=== PATIENT | female | born 1945 | race Caucasian/White ===

== ENCOUNTER 2016-09-11 05:31 | Inpatient (IN) ==
[2016-09-11] MEDS ORDERED: CLINDAMYCIN INJ 50 ML IV ONE (05:57)
[2016-09-11] MEDS ORDERED: VANCOMYCIN 1,000 MG VIAL ONE (05:57)
[2016-09-11] MEDS ORDERED: CLINDAMYCIN INJ 900 MG in PREMIX 1 EACH IV ONE (06:00)
[2016-09-11] MEDS ORDERED: VANCOMYCIN INJ 1,000 MG in SODIUM CHLORIDE 0.9% 250 ML IV ONE ×2 (06:00→21:00)
[2016-09-11] MEDS ORDERED: LACTATED RINGERS 1,000 ML IV SCH (07:00)
--- NOTE | 2016-09-11 07:00 | History and Physical Update ---
History and Physical Update - History and Physical H&P was reviewed, the patient examined and there: are no changes in the patients condition since last H&P was completed. - Dictation Physical: refer to scanned H&P
[2016-09-11] MEDS ORDERED: SCOPOLAMINE 1.5 MG PATCH TRANSDERM ONE (07:17)
[2016-09-11] MEDS ORDERED: DIAZEPAM 5 MG TABLET PO ONE (07:17)
[2016-09-11] MEDS ORDERED: PROPOFOL 200 MG/20 ML VIAL IV ONE (09:11)
[2016-09-11] MEDS ORDERED: PHENYLEPHRINE 1 MG/10 ML SYRINGE IV ONE (09:11)
[2016-09-11 11:42] LABS: Apearance,Urine CLEAR (Clear); Bilirubin,Urine Negative (Negative); Blood, Urine Negative (Negative); Glucose,Urine (UA) Negative (Negative); Ketones,Urine Negative (Negative); Nitrite,Urine Negative (Negative); Protein,Urine Negative; RBC,Urine <1 /HPF (0-4); Urine Color Straw (Yellow); Urine Specific Gravity 1.008 (1.001-1.035); Urine Urobilinogen < 2.0 EU/DL (0.2-1.0); WBC,Urine <1 /HPF (0-6)
[2016-09-11] MEDS ORDERED: FUROSEMIDE 40 MG TABLET PO PRN (12:09)
[2016-09-11] MEDS ORDERED: diphenhydrAMINE CAP 25 MG CAPSULE PO PRN (12:10)
[2016-09-11] MEDS ORDERED: MAGNESIUM HYDROXIDE SUSP 30 ML UDCUP PO PRN (12:10)
[2016-09-11] MEDS ORDERED: HYDROmorphone 2 MG/1 ML VIAL IV PRN (12:10)
[2016-09-11] MEDS ORDERED: ONDANSETRON 4 MG/2 ML VIAL IV PRN (12:10)
[2016-09-11] MEDS ORDERED: MIDAZOLAM 2 MG/2 ML VIAL ONE (12:29)
[2016-09-11] MEDS ORDERED: HYDROmorphone 2 MG/1 ML VIAL ONE (12:29)
[2016-09-11] MEDS ORDERED: KETAMINE 500 MG/10 ML VIAL ONE (12:29)
[2016-09-11] MEDS ORDERED: LACTATED RINGERS 2,000 ML IV ONE (12:29)
[2016-09-11] MEDS ORDERED: fentaNYL 100 MCG/2 ML VIAL ONE (12:29)
[2016-09-11] MEDS ORDERED: HYDROmorphone PCA 30 MG/30 ML SYRINGE IV SCH (12:30)
[2016-09-11] MEDS ORDERED: HYDROmorphone PCA 30 MG/30 ML SYRINGE IV ONE (12:35)
--- NOTE | 2016-09-11 12:57 | XRay Report ---
Right hip, single portable view. Indication: Right hip replacement. No previous. Surgical skin alden and drains project over the soft tissues. There has been a right total hip replacement. Along the medial proximal aspect of the femoral shaft, there is slight lucency which may be related to a vascular channel or a small cortical fracture. No evidence of dislocation. The hardware appears to be in good position. Impression: Slight oblique lucency through the cortex of the proximal shaft of the right femur medially, which may represent a vascular channel or could represent a small cortical fracture. Correlation with previous studies may be helpful. PROCEDURE INTERPRETED AT [facility] DEPARTMENT OF RADIOLOGY Final Report Signed by: Dr. Twyla Day
--- NOTE | 2016-09-11 13:52 | Anesthesia ---
Anesthesia Post OP - Post Ansesthetic Evaluation Patient seen in post op: Yes Resp: within normal limits CV: within normal limits Mental: within normal limits Temp: within normal limits Ivoc-Ma-Snfuqosmm: within normal limits Nausea and Vomiting: within normal limits Pain: within normal limits
[2016-09-11] MEDS: SODIUM CHLORIDE 0.9% 1,000 ML IV SCH (14:34)
--- NOTE | 2016-09-11 15:31 | Pulmonology Progress Note ---
Pulmonary - PN: Subj Interval history: Patient is a 71-year-old that has significant arthritis and had avascular necrosis of the right hip. She came in today and had a right total hip replacement. She has a white postop and says she is doing okay. She is very sore at present. She does not have any respiratory difficulties. She is overweight with hypothyroidism but is otherwise been fairly healthy. Exam (Progress Note) - Constitutional Vitals: Period Temp Pulse Resp BP Sys/Martinez Pulse Ox Last 24 Hr 97.0 F-98.1 F 88-109 18-20 96-133/49-85 94-100 General appearance: mild distress (She is uncomfortable after surgery.), over weight - Head Head exam: Present: normal inspection, normocephalic - Eye Eye exam: Present: EOMI. Absent: scleral icterus Pupils: Present: CAMILO - ENT ENT exam: Present: normal exam - Neck Neck exam: Present: normal inspection. Absent: lymphadenopathy, thyromegaly - Respiratory Respiratory exam: Present: clear to auscultation bilaterally. Absent: wheezes - Cardiovascular Cardiovascular exam: Present: regular rate and rhythm. Absent: gallop, systolic murmur - GI/Abdominal GI/Abdominal exam: Present: normal bowel sounds, soft. Absent: organomegaly, tenderness - Extremities Exam Extremities exam: Present: other (The right leg is splinted). Absent: calf tenderness, edema - Neurological Exam Neurological exam: Present: alert, oriented X3, CN II-XII intact - Psychiatric Psychiatric exam: Present: normal affect - Skin Skin exam: Present: warm, dry Assessment and Plan (1) Avascular necrosis of bone of right hip Status: Acute Assessment and plan: Patient was having severe pain and difficulty getting around because of her right hip. She comes in for surgery today. Current Visit: Yes (2) Status post right hip replacement Status: Acute Assessment and plan: She is postop and doing reasonably well at the present time. She is having some discomfort but no distress. Current Visit: Yes (3) Hypothyroid Status: Acute Assessment and plan: She will continue with thyroid replacement. Current Visit: Yes (4) Overweight Status: Acute Assessment and plan: She is overweight but will watch for problems. Current Visit: Yes
[2016-09-11] MEDS: CLINDAMYCIN INJ 900 MG in PREMIX 1 EACH IV SCH (17:39)
[2016-09-11] MEDS: CYCLOBENZAPRINE 10 MG TABLET PO SCH ×2 (17:40→22:08)
[2016-09-11] MEDS: ACETAMINOPHEN 500 MG TABLET PO SCH (17:41)
[2016-09-11] MEDS: carBAMazepine 200 MG TABLET PO SCH (22:07)
[2016-09-11] MEDS: MULTIVITAMIN (OCUVITE) TABLET PO SCH (22:07)
[2016-09-11] MEDS: PRIMIDONE 250 MG TABLET PO SCH (22:07)
[2016-09-11] MEDS: DOCUSATE SODIUM 100 MG CAPSULE PO SCH (22:07)
[2016-09-11] MEDS: GABAPENTIN 600 MG TABLET PO SCH (22:07)
[2016-09-11] MEDS: LATANOPROST 0.005% OPH SOLN 2.5 ML BOTTLE BOTH EYES SCH (22:09)
[2016-09-12] MEDS: ACETAMINOPHEN 500 MG TABLET PO SCH ×3 (01:42→12:22)
[2016-09-12] MEDS: CLINDAMYCIN INJ 900 MG in PREMIX 1 EACH IV SCH (03:17)
[2016-09-12 05:03] LABS: Basophils % 0.2 % (0.0-0.8); Hematocrit 29.1 VOL% (35.7-47.0); Hemoglobin 8.8 GM/DL (12.0-16.0); Immature Granulocytes % 0.4 %; Immature Granulocytes Absolute 0.03 #; Lymphocytes # 1.3 10*3/uL (1.4-4.0); Lymphocytes % 15.8 % (21.3-54.2); Mean Corpuscular HGB Conc 30.2 GM/DL (32-36); Mean Corpuscular Hemoglobin 26 PG (27-34); Mean Corpuscular Volume 85.6 FL (87-102); Mean Platelet Volume 9.7 FL (9.6-12.0); Neutrophils # 5.9 10*3/uL (1.4-7.4); Neutrophils % 71.6 % (38.7-73.9); Platelet Count 339 T/CUMM (130-400); Red Cell Distribution Width 16.4 % (9.3-17.3); White Blood Count 8.3 T/CUMM (4-12)
[2016-09-12 05:39] LABS: Calcium 7.2 MG/DL (8.5-10.1); Potassium 4.5 MMOL/L (3.5-5.1)
--- NOTE | 2016-09-12 06:12 | Orthopedic Progress Note ---
Assessment and Plan (1) Status post right hip replacement Status: Acute Assessment and plan: DVT prophylaxis Out of bed with therapy twice daily, touchdown weightbearing right lower extremity Discharge planning Current Visit: Yes Orthopedics - Subjective Interval history: Patient complains of mild pain in the right thigh. On exam she has 5 out of 5 strength distally with a 2 dorsalis pedis pulse. Exam - Constitutional Vitals: Period Temp Pulse Resp BP Sys/Martinez Pulse Ox Last 24 Hr 97.0 F-98.1 F 88-115 12-20 81-133/49-85 94-100 Results - Labs CBC & BMP: 09/12/16 04:26 09/12/16 04:26
[2016-09-12] MEDS: ENOXAPARIN 40 MG/0.4 ML SYRINGE SUBCUT SCH (06:18)
[2016-09-12] MEDS: SODIUM CHLORIDE 0.9% 1,000 ML IV SCH (07:17)
[2016-09-12] MEDS: CYCLOBENZAPRINE 10 MG TABLET PO SCH ×3 (10:11→21:41)
[2016-09-12] MEDS: MULTIVITAMIN (OCUVITE) TABLET PO SCH ×2 (10:11→21:41)
[2016-09-12] MEDS: hydrOXYzine HCL 25 MG TABLET PO SCH (10:11)
[2016-09-12] MEDS: TEMAZEPAM 15 MG CAPSULE PO SCH (10:12)
[2016-09-12] MEDS: DOCUSATE SODIUM 100 MG CAPSULE PO SCH ×2 (10:12→21:41)
[2016-09-12] MEDS: THYROID 60 MG TABLET PO SCH (13:52)
--- NOTE | 2016-09-12 14:10 | Pulmonology Progress Note ---
Pulmonary - PN: Subj Interval history: Patient is a 71-year-old that has significant arthritis and had avascular necrosis of the right hip. She came in today and had a right total hip replacement. She has done well postop although she says she did not sleep very well last night. Her leg is sore but she is doing okay. She has not had any shortness of breath or other problems. She is going to start physical therapy today. Exam (Progress Note) - Constitutional Vitals: Period Temp Pulse Resp BP Sys/Martinez Pulse Ox Last 24 Hr 97.8 F-97.9 F 104-115 12-19 81-116/49-73 95-100 Exam: General appearance: no distress (She is alert and looks reasonably comfortable) , over weight - Head Head exam: Present: normal inspection, normocephalic - Eye Eye exam: Present: EOMI. Absent: scleral icterus Pupils: Present: CAMILO - ENT ENT exam: Present: normal exam - Neck Neck exam: Present: normal inspection. Absent: lymphadenopathy, thyromegaly - Respiratory Respiratory exam: Present: clear to auscultation bilaterally. Absent: wheezes - Cardiovascular Cardiovascular exam: Present: regular rate and rhythm. Absent: gallop, systolic murmur - GI/Abdominal GI/Abdominal exam: Present: normal bowel sounds, soft. Absent: organomegaly, tenderness - Extremities Exam Extremities exam: Present: other (The right leg is splinted. She has no definite swelling or tenderness.). Absent: calf tenderness, edema - Neurological Exam Neurological exam: Present: alert, oriented X3, CN II-XII intact - Psychiatric Psychiatric exam: Present: normal affect - Skin Skin exam: Present: warm, dry Results - Labs CBC & BMP: 09/12/16 04:26 09/12/16 04:26 Assessment and Plan (1) Avascular necrosis of bone of right hip Status: Acute Assessment and plan: Patient was having severe pain and difficulty getting around because of her right hip. She comes in for surgery. She had a right total hip replacement. Current Visit: Yes (2) Status post right hip replacement Status: Acute Assessment and plan: She is postop and is fairly stable at present. She has had some pain but is otherwise doing okay. Current Visit: Yes (3) Hypothyroid Status: Acute Assessment and plan: She will continue with thyroid replacement. Current Visit: Yes (4) Overweight Status: Acute Assessment and plan: She is overweight but will watch for problems. Current Visit: Yes
[2016-09-12] MEDS: ACETAMINOPHEN 325 MG TABLET PO PRN (17:09)
[2016-09-12] MEDS: carBAMazepine 200 MG TABLET PO SCH (21:41)
[2016-09-12] MEDS: GABAPENTIN 600 MG TABLET PO SCH (21:42)
[2016-09-12] MEDS: PRIMIDONE 250 MG TABLET PO SCH (21:42)
[2016-09-12] MEDS: LATANOPROST 0.005% OPH SOLN 2.5 ML BOTTLE BOTH EYES SCH (21:42)
[2016-09-13] MEDS: ACETAMINOPHEN 325 MG TABLET PO PRN ×3 (00:30→21:57)
[2016-09-13 05:39] LABS: Basophils % 0.1 % (0.0-0.8); Hematocrit 25.7 VOL% (35.7-47.0); Hemoglobin 8.1 GM/DL (12.0-16.0); Immature Granulocytes % 0.4 %; Immature Granulocytes Absolute 0.04 #; Lymphocytes # 1.5 10*3/uL (1.4-4.0); Mean Corpuscular HGB Conc 31.5 GM/DL (32-36); Mean Corpuscular Hemoglobin 26 PG (27-34); Mean Corpuscular Volume 83.2 FL (87-102); Mean Platelet Volume 10.1 FL (9.6-12.0); Monocytes # 1.5 10*3/uL (0.11-0.8); Monocytes % 15.5 % (1.7-12.7); Neutrophils # 6.8 10*3/uL (1.4-7.4); Platelet Count 286 T/CUMM (130-400); Red Blood Count 3.09 MC/CUMM (3.8-5.5); Red Cell Distribution Width 15.9 % (9.3-17.3); White Blood Count 9.9 T/CUMM (4-12)
[2016-09-13] MEDS: ENOXAPARIN 40 MG/0.4 ML SYRINGE SUBCUT SCH (06:48)
--- NOTE | 2016-09-13 07:31 | Orthopedic Progress Note ---
Assessment and Plan (1) Status post right hip replacement Status: Acute Assessment and plan: Urine from Saturday was clean, we'll check another due to her symptoms Encouraged incentive spirometry Out of bed with therapy twice daily Discharge planning Current Visit: Yes Orthopedics - Subjective Interval history: Patient is complaining of burning on urination. She had low-grade temperature last night. Had some confusion last night as well. On exam her dressings clean and dry, she is neurovascular intact. Exam - Constitutional Vitals: Period Temp Pulse Resp BP Sys/Mratinez Pulse Ox Last 24 Hr 98.0 F-100.7 F 80-115 18-20 100-122/40-69 93-96 Results - Labs CBC & BMP: 09/13/16 04:50 09/12/16 04:26
--- NOTE | 2016-09-13 07:50 | Pulmonology Progress Note ---
Pulmonary - PN: Subj Interval history: 71-year-old white female has a history of arthritis. She is a little overweight. She had a right hip replacement on Saturday for avascular necrosis. She had some fever and sweats last night. Temperature was only 100. Her calves are somewhat painful. She has not had a cough or congestion. Exam (Progress Note) - Constitutional Vitals: Period Temp Pulse Resp BP Sys/Martinez Pulse Ox Last 24 Hr 98.0 F-100.7 F 80-115 18-20 100-122/40-69 93-96 Exam: She is alert and is afebrile this morning. Pupils react to light throat clear neck supple no bruits. Chest sounds clear equal breath sounds. Heart normal rate and rhythm no murmurs. Abdomen soft nontender no masses. Liver spleen kidneys not palpably enlarged. Extremities bandage on her right hip. Both calves are tender. Homans test is negative. No edema. Results - Labs CBC & BMP: 09/13/16 04:50 09/12/16 04:26 Lab Results: I have reviewed the past 24 hour labs Assessment and Plan (1) Fever Status: Acute Assessment and plan: She did have some fever and sweats overnight. Calves are nontender. We will get venous Dopplers. Likely this is just some atelectasis from postoperative condition. Current Visit: Yes (2) Avascular necrosis of bone of right hip Status: Acute Assessment and plan: She has had a right hip replacement. Current Visit: Yes (3) Status post right hip replacement Status: Acute Assessment and plan: Patient is to start with physical therapy today. Fever and tender calves 2 days postop. Will get venous Dopplers. Getting Lovenox DVT prophylaxis. Current Visit: Yes (4) Hypothyroid Status: Acute Assessment and plan: Continuing Synthroid replacement. Current Visit: Yes (5) Overweight Status: Acute Assessment and plan: This will likely make physical therapy a little more difficult. Current Visit: Yes
--- NOTE | 2016-09-13 09:21 | Ultrasound Report ---
Exam: US venous doppler LE BI Indication: Leg pain, post right hip replacement Date: 09/13/2016 7:52 AM Findings: Grayscale color flow duplex/Doppler imaging and spectral analysis waveform imaging was performed with real-time ultrasound with image stored and captured. The right common femoral, superficial femoral, popliteal saphenous veins are patent with normal augmentation and compression. There is no evidence of popliteal or Valles's cyst. Normal wave form analysis present. Normal color flow The left common femoral, superficial femoral, popliteal saphenous veins are patent with normal augmentation and compression. There is no evidence of popliteal or Valles's cyst. Normal wave form analysis present. Normal color flow Impression: 1. No DVT PROCEDURE INTERPRETED AT [facility] DEPARTMENT OF RADIOLOGY Final Report Signed by: Dr. Ryan Cisneros
[2016-09-13] MEDS ORDERED: THYROID 60 MG TABLET PO ONE (09:30)
[2016-09-13] MEDS: MULTIVITAMIN (OCUVITE) TABLET PO SCH ×2 (10:08→21:04)
[2016-09-13] MEDS: TEMAZEPAM 15 MG CAPSULE PO SCH (10:08)
[2016-09-13] MEDS: CYCLOBENZAPRINE 10 MG TABLET PO SCH ×3 (10:09→21:04)
[2016-09-13] MEDS: DOCUSATE SODIUM 100 MG CAPSULE PO SCH ×2 (10:09→22:52)
[2016-09-13] MEDS: hydrOXYzine HCL 25 MG TABLET PO SCH (10:09)
[2016-09-13] MEDS: THYROID 60 MG TABLET PO SCH (11:28)
--- NOTE | 2016-09-13 12:12 | Pathology Report from [facility] ---
ACCESSION # : [id number] PATIENT NAME : Diana Garcia ORDERING DR : Cody Nichols MD CLINICAL HX: Right hip osteoarthritis POST-OP DX: Same SPECIMEN INFO: Right hip bone and tissue GROSS DESCRIPTION: The specimen is received in formalin labeled with the patient 's name Diana Garcia is a fractured femoral head that measures 4.0 x 4.0 x 3.3 cm. The articular surface is smooth and carter with no subchondral eburnation seen. The area of fracture is ragged and hemorrhagic with no softening appreciated. received separately in the specimen container is an aggregate of hemorrhagic bone and soft tissue measuring 8.0 x 4.0 cm. Pallet Stone Inserter sections are submitted in one cassette following decalcification. DIAGNOSIS FOR DIANA GARCIA: Right femoral head with fracture and changes of degenerative joint disease/ osteoarthritis. SERVICE DATE: 09/11/2016 REPORT DATE: 09/13/2016 PATHOLOGIST: Carlin Gomez M.D. MTDPolo
[2016-09-13 16:03] LABS: Apearance,Urine CLEAR (Clear); Bilirubin,Urine Negative (Negative); Blood, Urine Negative (Negative); Glucose,Urine (UA) Negative (Negative); Ketones,Urine 5 mg/dL (Negative); Nitrite,Urine Negative (Negative); Protein,Urine Negative; RBC,Urine 1 /HPF (0-4); Urine Color Yellow (Yellow); Urine Specific Gravity 1.008 (1.001-1.035); Urine Urobilinogen < 2.0 EU/DL (0.2-1.0); WBC,Urine 1 /HPF (0-6)
[2016-09-13] MEDS: LATANOPROST 0.005% OPH SOLN 2.5 ML BOTTLE BOTH EYES SCH (21:04)
[2016-09-13] MEDS: PRIMIDONE 250 MG TABLET PO SCH (21:04)
[2016-09-13] MEDS: carBAMazepine 200 MG TABLET PO SCH (21:04)
[2016-09-13] MEDS: GABAPENTIN 600 MG TABLET PO SCH (21:04)
[2016-09-14 06:36] LABS: Basophils % 0.2 % (0.0-0.8); Hematocrit 26.2 VOL% (35.7-47.0); Hemoglobin 8.3 GM/DL (12.0-16.0); Immature Granulocytes % 0.9 %; Lymphocytes # 1.2 10*3/uL (1.4-4.0); Lymphocytes % 10.9 % (21.3-54.2); Mean Corpuscular HGB Conc 31.7 GM/DL (32-36); Mean Corpuscular Hemoglobin 26 PG (27-34); Mean Corpuscular Volume 82.4 FL (87-102); Mean Platelet Volume 10.2 FL (9.6-12.0); Monocytes # 1.3 10*3/uL (0.11-0.8); Monocytes % 11.3 % (1.7-12.7); Neutrophils # 8.7 10*3/uL (1.4-7.4); Neutrophils % 76.7 % (38.7-73.9); Platelet Count 319 T/CUMM (130-400); Red Blood Count 3.18 MC/CUMM (3.8-5.5); Red Cell Distribution Width 16.3 % (9.3-17.3); White Blood Count 11.4 T/CUMM (4-12)
[2016-09-14] MEDS: ENOXAPARIN 40 MG/0.4 ML SYRINGE SUBCUT SCH (06:40)
--- NOTE | 2016-09-14 07:29 | Discharge Summary ---
Hospital Course - Hospital Course Hospital Course: 71-year-old female admitted to the hospital following right total hip arthroplasty. She tolerated the procedure well was transferred to the floor stable condition postoperatively. She received routine antibiotics and thromboprophylaxis. She was very slow to get around with therapy, so we have been swing bed or consult for placement. She did have some early issues with sundowning, but this resolved by the time of discharge. Once a bed was available, she was discharged to swing bed at [facility]. Discharge, Her Wounds Clean and Dry and She Was Neurovascularly Intact. Diagnosis - Discharge Diagnosis (1) Status post right hip replacement Status: Acute Specialty Discharge - Follow Up or Referrals Follow up with: Cody Nichols MD [Physician] - (3-4 weeks) Discharge Plan - Discharge Data Disposition: Swing Bed W Planned Readmit Condition at Discharge: Stable Discharge Diet: advance to your usual diet Activity: ambulate only with your walker Hygiene: may shower Weight Bearing at Discharge: partial weight bearing (30 lb partial WB RLE) Driving: not until seen by doctor Contact your physician if you experience:: fever over 101, Difficulty voiding, Redness or swelling, Nausea/Vomiting, Shortness of breath, Bleeding, pain uncontrolled by pain medications Wound / Dressing Care Instructions: begin daily dressing change on Saturday. Ok to shower, no tub soaks. Bladen out 09/24/2016 - Discharge Medications New Aspirin EC Tab 325 mg PO DAILY #30 tablet Acetaminophen Tab [Tylenol Tab] 650 mg PO Q6H PRN #0 tablet PRN Reason: Pain Mild (1-3) HYDROcodone/ACETAMIN 7.5-325 [[place] 7.5-325] 1 - 2 tablet PO Q4H PRN #60 tablet PRN Reason: Pain Moderate (4-7) Continue Meclizine [Antivert] 25 mg PO DAILY PRN PRN Reason: Dizziness hydrOXYzine HCl [Hydroxyzine HCl] 25 mg PO DAILY Methocarbamol 750 mg PO TID Gabapentin Cap/Tab [Neurontin Cap/Tab] 600 mg PO BEDTIME Temazepam 30 mg PO BEDTIME Furosemide Tab [Lasix Tab] 40 mg PO DIRECTED PRN PRN Reason: Edema carBAMazepine TAB [TEGretol TAB] 800 mg PO BEDTIME Vit C/Vishal AC/Lut/Copper/Znox [Preservision Lutein Softgel] 1 each PO BID Latanoprost [Latanoprost 0.005 % Oph Soln] 1 drop BOTH EYES BEDTIME Cyclobenzaprine [Flexeril] 10 mg PO TID Primidone [Mysoline] 250 mg PO BEDTIME Thyroid,Pork [[place] Thyroid] 270 mg PO DAILY Discontinued Hydrocodone/Acetaminophen [Lortab 7.5-325 mg Tablet] 1 each PO Q6HR - Follow Up or Referral Follow Up: Cody Nichols MD [Physician] - (3-4 weeks) - Forms/Instructions Additional Discharge Instructions: 30lb partial WB RLE. RIGHT hip precautions Exam - Constitutional Vitals: Period Temp Pulse Resp BP Sys/Martinez Pulse Ox Last 24 Hr 98.6 F-100.7 F 98-120 12-20 91-139/58-97 92-97 Discharge Results Labs on day of discharge: Labs from last 24 hours 09/14/16 09/13/16 04:59 13:42 WBC 11.4 RBC 3.18 L Hgb 8.3 L Hct 26.2 L MCV 82.4 L MCH 26 L MCHC 31.7 L RDW 16.3 Plt Count 319 MPV 10.2 Neut % (Auto) 76.7 H Lymph % (Auto) 10.9 L [place] % (Auto) 11.3 Eos % (Auto) 0.0 Baso % (Auto) 0.2 Neut # (Auto) 8.7 H Lymph # (Auto) 1.2 L [place] # (Auto) 1.3 H Eos # (Auto) 0.0 Baso # (Auto) 0.0 Immature Gran % 0.9 Nucleated RBC % 0.0 Immature Gran # 0.10 Nucleated RBCs # 0.00 Urine Color Yellow Urine Appearance Clear Urine pH 6.0 Ur Specific Purdy 1.008 Urine Protein Negative Urine Glucose (UA) Negative Urine Ketones 5 Urine Blood Negative Urine Nitrate Negative Urine Bilirubin Negative Urine Urobilinogen < 2.0 H Urine Leukocytes Negative Urine RBC 1 Urine WBC 1 Ur Culture Indicated? Not indicated DS: Provider Date of admission: 09/11/16 05:31 Primary care physician: Destiny Napier Attending physician on admission: Cody Nichols MD Consults: 09/11/16 12:10 Consult to Case Mgmt/Social Srvs [CONS] Routine Reason for Case Mgmt/Social Srvs: Rehab Home Health Equipment Consult Comment: Bedside Commode, CPM, Walker Consult to Occupational Therapy [CONS] Routine Reason for Occupational Therapy: Evaluate and Treat Consult Comment: ADL's 09/11/16 12:12 Consult to Physician [CONS] Routine Comment: Consulting Provider: Clayton Obrien Consulting Provider Notified: Yes When should Consulting Provider be notified: Now Person Notified: henrik llanos Date Notified: 09/11/16 Time Notified: 14:04 09/11/16 14:21 Consult to Pharmacy [CONS] Routine Reason for Pharmacy Consult: Adjust Meds Renal Funct 09/11/16 19:21 Consult to Physical Therapy [CONS] Routine Reason for Physical Therapy: Gait Training Start Therapy: Tomorrow Consult Comment: touchdown weightbearing right lower extremity Discharging clinician: Cody Nichols MD
--- NOTE | 2016-09-14 08:00 | Orthopedic Progress Note ---
Assessment and Plan (1) Status post right hip replacement Status: Acute Assessment and plan: Awaiting swing bed placement Current Visit: Yes Orthopedics - Subjective Interval history: Patient still with confusion during the night. Seems better during the day. She was able to sit in the bedside chair twice yesterday. On exam her dressings clean and dry, she is neurovascularly intact. Exam - Constitutional Vitals: Period Temp Pulse Resp BP Sys/Martinez Pulse Ox Last 24 Hr 98.6 F-100.6 F 98-120 12-20 91-139/58-70 92-97 Results - Labs CBC & BMP: 09/14/16 04:59 09/12/16 04:26 Specialty Discharge - Follow Up or Referrals Follow up with: Cody Nichols MD [Physician] - (3-4 weeks)
--- NOTE | 2016-09-14 09:01 | Pulmonology Progress Note ---
Pulmonary - PN: Subj Interval history: 71-year-old white female has a history of arthritis. She is a little overweight. She had a right hip replacement on Saturday for avascular necrosis. She had some fever and sweats last night. Temperature was only 100. Her calves are somewhat painful. She has not had a cough or congestion. 09/14/2016 no further fever. Venous Dopplers were negative. Ready for discharge. Please call if needed for the Exam (Progress Note) - Constitutional Vitals: Period Temp Pulse Resp BP Sys/Martinez Pulse Ox Last 24 Hr 98.6 F-100.6 F 98-120 12-20 91-139/58-70 92-97 Exam: She is alert and is afebrile this morning. Pupils react to light throat clear neck supple no bruits. Chest sounds clear equal breath sounds. Heart normal rate and rhythm no murmurs. Abdomen soft nontender no masses. Liver spleen kidneys not palpably enlarged. Extremities bandage on her right hip. Both calves are tender. Homans test is negative. 1 plus edema. Results - Labs CBC & BMP: 09/14/16 04:59 09/12/16 04:26 Lab Results: I have reviewed the past 24 hour labs Assessment and Plan (1) Fever Status: Acute Assessment and plan: She did have some fever and sweats overnight. Calves are nontender. We will get venous Dopplers. Likely this is just some atelectasis from postoperative condition. 09/14/2016 no further fever. Maximum temperature was only 100. Current Visit: Yes (2) Avascular necrosis of bone of right hip Status: Acute Assessment and plan: She has had a right hip replacement. 09/14/16 status post right hip replacement. Current Visit: Yes (3) Status post right hip replacement Status: Acute Assessment and plan: Patient is to start with physical therapy today. Fever and tender calves 2 days postop. Will get venous Dopplers. Getting Lovenox DVT prophylaxis. 09/14/16 patient participating in physical therapy. Ready to go to swing bed Current Visit: Yes (4) Hypothyroid Status: Acute Assessment and plan: Continuing Synthroid replacement. Current Visit: Yes (5) Overweight Status: Acute Assessment and plan: This will likely make physical therapy a little more difficult. Current Visit: Yes Specialty Discharge - Follow Up or Referrals Follow up with: Cody Nichols MD [Physician] - (3-4 weeks)
[2016-09-14] MEDS: THYROID 60 MG TABLET PO SCH (11:27)
[2016-09-14] MEDS: CYCLOBENZAPRINE 10 MG TABLET PO SCH ×3 (11:28→21:51)
[2016-09-14] MEDS: DOCUSATE SODIUM 100 MG CAPSULE PO SCH ×2 (11:29→21:51)
[2016-09-14] MEDS: hydrOXYzine HCL 25 MG TABLET PO SCH (11:30)
[2016-09-14] MEDS: MULTIVITAMIN (OCUVITE) TABLET PO SCH ×2 (11:31→21:51)
[2016-09-14] MEDS: TEMAZEPAM 15 MG CAPSULE PO SCH (11:34)
[2016-09-14] MEDS: LATANOPROST 0.005% OPH SOLN 2.5 ML BOTTLE BOTH EYES SCH (21:50)
[2016-09-14] MEDS: carBAMazepine 200 MG TABLET PO SCH (21:50)
[2016-09-14] MEDS: PRIMIDONE 250 MG TABLET PO SCH (21:51)
[2016-09-14] MEDS: GABAPENTIN 600 MG TABLET PO SCH (21:51)
[2016-09-14] MEDS: TEMAZEPAM 15 MG CAPSULE PO PRN (21:51)
[2016-09-15] MEDS: ENOXAPARIN 40 MG/0.4 ML SYRINGE SUBCUT SCH (06:25)
--- NOTE | 2016-09-15 08:29 | Orthopedic Progress Note ---
Orthopedics - Subjective Interval history: Jurado comfortable awake reports confusion intermittently. Continue PT awaiting rehabilitation placement Exam - Constitutional Vitals: Period Temp Pulse Resp BP Sys/Martinez Pulse Ox Last 24 Hr 98.1 F-100.3 F 74-118 18-20 86-124/57-77 93-97 Results - Labs CBC & BMP: 09/14/16 04:59 09/12/16 04:26 Specialty Discharge - Follow Up or Referrals Follow up with: Cody Nichols MD [Physician] - (3-4 weeks)
[2016-09-15] MEDS: hydrOXYzine HCL 25 MG TABLET PO SCH (09:49)
[2016-09-15] MEDS: CYCLOBENZAPRINE 10 MG TABLET PO SCH ×3 (09:49→21:51)
[2016-09-15] MEDS: MULTIVITAMIN (OCUVITE) TABLET PO SCH ×2 (09:49→21:50)
[2016-09-15] MEDS: DOCUSATE SODIUM 100 MG CAPSULE PO SCH ×2 (09:49→21:52)
[2016-09-15] MEDS: THYROID 60 MG TABLET PO SCH (10:04)
[2016-09-15] MEDS: carBAMazepine 200 MG TABLET PO SCH (21:50)
[2016-09-15] MEDS: PRIMIDONE 250 MG TABLET PO SCH (21:51)
[2016-09-15] MEDS: TEMAZEPAM 15 MG CAPSULE PO PRN (21:51)
[2016-09-15] MEDS: GABAPENTIN 600 MG TABLET PO SCH (21:51)
[2016-09-15] MEDS: LATANOPROST 0.005% OPH SOLN 2.5 ML BOTTLE BOTH EYES SCH (23:11)
[2016-09-16] MEDS: ENOXAPARIN 40 MG/0.4 ML SYRINGE SUBCUT SCH (07:42)
--- NOTE | 2016-09-16 10:20 | Orthopedic Progress Note ---
Orthopedics - Subjective Interval history: Progressing very slowly likely to need swing bed rehabilitation placement no new complaints Exam - Constitutional Vitals: Period Temp Pulse Resp BP Sys/Martinez Pulse Ox Last 24 Hr 97.2 F-99.4 F 93-118 12-21 84-143/47-94 90-97 Results - Labs CBC & BMP: 09/14/16 04:59 09/12/16 04:26 Specialty Discharge - Follow Up or Referrals Follow up with: Cody Nichols MD [Physician] - (3-4 weeks)
[2016-09-16] MEDS: hydrOXYzine HCL 25 MG TABLET PO SCH (11:45)
[2016-09-16] MEDS: MECLIZINE 25 MG TABLET PO PRN (11:45)
[2016-09-16] MEDS: MULTIVITAMIN (OCUVITE) TABLET PO SCH ×2 (11:46→20:37)
[2016-09-16] MEDS: CYCLOBENZAPRINE 10 MG TABLET PO SCH ×3 (11:47→20:36)
[2016-09-16] MEDS: DOCUSATE SODIUM 100 MG CAPSULE PO SCH ×2 (11:47→20:37)
[2016-09-16] MEDS: THYROID 60 MG TABLET PO SCH (15:29)
[2016-09-16] MEDS: carBAMazepine 200 MG TABLET PO SCH (20:36)
[2016-09-16] MEDS: GABAPENTIN 600 MG TABLET PO SCH (20:36)
[2016-09-16] MEDS: LATANOPROST 0.005% OPH SOLN 2.5 ML BOTTLE BOTH EYES SCH (20:36)
[2016-09-16] MEDS: TEMAZEPAM 15 MG CAPSULE PO PRN (20:37)
[2016-09-16] MEDS: PRIMIDONE 250 MG TABLET PO SCH (20:37)
[2016-09-17] MEDS: ENOXAPARIN 40 MG/0.4 ML SYRINGE SUBCUT SCH (06:15)
--- NOTE | 2016-09-17 07:36 | Orthopedic Progress Note ---
Assessment and Plan (1) Status post right hip replacement Status: Acute Assessment and plan: Discharge to swing bed Current Visit: Yes Orthopedics - Subjective Interval history: Patient was ambulating in the room over the weekend, mostly sitting in the bedside chair. On exam, her wound is clean and dry, she is neurovascularly intact. Exam - Constitutional Vitals: Period Temp Pulse Resp BP Sys/Martinez Pulse Ox Last 24 Hr 97.5 F-98.9 F 91-102 12-18 86-143/51-86 93-97 Results - Labs CBC & BMP: 09/14/16 04:59 09/12/16 04:26 Specialty Discharge - Follow Up or Referrals Follow up with: Cody Nichols MD [Physician] - (3-4 weeks)
[2016-09-17] MEDS: MULTIVITAMIN (OCUVITE) TABLET PO SCH ×2 (09:44→20:39)
[2016-09-17] MEDS: hydrOXYzine HCL 25 MG TABLET PO SCH (09:44)
[2016-09-17] MEDS: DOCUSATE SODIUM 100 MG CAPSULE PO SCH ×2 (09:44→20:40)
[2016-09-17] MEDS: CYCLOBENZAPRINE 10 MG TABLET PO SCH ×3 (09:44→20:40)
[2016-09-17] MEDS: MECLIZINE 25 MG TABLET PO PRN (14:27)
[2016-09-17] MEDS: THYROID 60 MG TABLET PO SCH (16:50)
[2016-09-17] MEDS: ONDANSETRON ODT 4 MG TABLET PO PRN (16:51)
[2016-09-17] MEDS: carBAMazepine 200 MG TABLET PO SCH (20:39)
[2016-09-17] MEDS: PRIMIDONE 250 MG TABLET PO SCH (20:39)
[2016-09-17] MEDS: GABAPENTIN 600 MG TABLET PO SCH (20:39)
[2016-09-17] MEDS: LATANOPROST 0.005% OPH SOLN 2.5 ML BOTTLE BOTH EYES SCH (20:43)
[2016-09-17] MEDS: TEMAZEPAM 15 MG CAPSULE PO PRN (20:43)
[2016-09-18] MEDS: ENOXAPARIN 40 MG/0.4 ML SYRINGE SUBCUT SCH (06:14)
[2016-09-18 06:47] LABS: Basophils % 0.2 % (0.0-0.8); Hematocrit 25.5 VOL% (35.7-47.0); Hemoglobin 8.1 GM/DL (12.0-16.0); Immature Granulocytes % 0.8 %; Lymphocytes % 24.3 % (21.3-54.2); Mean Corpuscular HGB Conc 31.8 GM/DL (32-36); Mean Corpuscular Hemoglobin 27 PG (27-34); Mean Corpuscular Volume 83.9 FL (87-102); Mean Platelet Volume 9.2 FL (9.6-12.0); Monocytes % 11.5 % (1.7-12.7); Neutrophils % 63.2 % (38.7-73.9); Platelet Count 416 T/CUMM (130-400); Red Blood Count 3.04 MC/CUMM (3.8-5.5); Red Cell Distribution Width 17.4 % (9.3-17.3)
[2016-09-18 06:48] LABS: Immature Granulocytes Absolute 0.05 #; Lymphocytes # 1.5 10*3/uL (1.4-4.0); Monocytes # 0.7 10*3/uL (0.11-0.8); Neutrophils # 3.8 10*3/uL (1.4-7.4)
[2016-09-18 07:30] LABS: Calcium 6.7 MG/DL (8.5-10.1); Osmolality,Calculated 280.1 MOS/KG (273-304); Potassium 2.9 MMOL/L (3.5-5.1)
--- NOTE | 2016-09-18 08:50 | Orthopedic Progress Note ---
Assessment and Plan (1) Status post right hip replacement Status: Acute Assessment and plan: Discharge home if swing bed denied by insurance Current Visit: Yes Orthopedics - Subjective Interval history: Pt still awaiting insurance approval for swing bed placement. Has not ambulated outside the room yet. C/o sores in mouth C/D/I, NVI Exam - Constitutional Vitals: Period Temp Pulse Resp BP Sys/Martinez Pulse Ox Last 24 Hr 98.4 F-99.9 F 92-110 18-20 90-118/55-70 95-100 Results - Labs CBC & BMP: 09/18/16 06:28 09/18/16 06:28 Specialty Discharge - Follow Up or Referrals Follow up with: Cody Nichols MD [Physician] - 10/08/16 10:30 am (3-4 weeks)
[2016-09-18] MEDS: MULTIVITAMIN (OCUVITE) TABLET PO SCH (09:43)
[2016-09-18] MEDS: THYROID 60 MG TABLET PO SCH (09:44)
[2016-09-18] MEDS: CYCLOBENZAPRINE 10 MG TABLET PO SCH (09:44)
[2016-09-18] MEDS: DOCUSATE SODIUM 100 MG CAPSULE PO SCH (09:44)
[2016-09-18] MEDS: NYSTATIN 500,000 UNIT/5 ML UDCUP SWISH/SWAL SCH ×2 (09:44→14:06)
[2016-09-18] MEDS: hydrOXYzine HCL 25 MG TABLET PO SCH (09:44)
[2016-09-18] MEDS: ONDANSETRON ODT 4 MG TABLET PO PRN (10:27)
[2016-09-18 15:35] VITALS: BP 132/60
== END 2016-09-18 16:00 | disposition home health service (06) | DRG 470 ==
LOC: N.SDSINP 05:31 → N.3E 13:46
PROVIDERS: ADMIT Orthopaedic Surgery; ATTEND Orthopaedic Surgery

== ENCOUNTER 2019-04-02 11:35 | Inpatient (IN) ==
[2019-04-02] MEDS ORDERED: NALOXONE 0.4 MG/ML VIAL ONE (11:40)
[2019-04-02] MEDS ORDERED: NALOXONE 0.4 MG/ML VIAL IV STA (11:51)
[2019-04-02] MEDS ORDERED: SODIUM CHLORIDE 0.9% 500 ML IV STA (12:04)
[2019-04-02 12:15] LABS: Basophils % 0.2 % (0.0-0.8); Hematocrit 32.8 VOL% (35.7-47.0); Hemoglobin 10.3 GM/DL (12.0-16.0); Immature Granulocytes % 0.6 %; Immature Granulocytes Absolute 0.05 #; Lymphocytes # 1.1 10*3/uL (1.4-4.0); Lymphocytes % 12.1 % (21.3-54.2); Mean Corpuscular HGB Conc 31.4 GM/DL (32-36); Monocytes % 6.9 % (1.7-12.7); Neutrophils % 80.2 % (38.7-73.9); Platelet Count 370 T/CUMM (130-400); Red Cell Distribution Width 15.2 % (9.3-17.3); White Blood Count 8.7 T/CUMM (4-12)
[2019-04-02 12:24] LABS: Alanine Aminotransferase 339 U/L (13-56); Albumin 3.4 G/DL (3.4-5.0); Alkaline Phosphatase 156 U/L (45-117); Apearance,Urine CLOUDY (Clear); Aspartate Amino Transferase 327 U/L (0-37); Bacteria,Urine Occasional /HPF (Few); Bilirubin,Total < 0.39 MG/DL (0.2-1.0); Bilirubin,Urine Negative (Negative); Blood Urea Nitrogen 20 MG/DL (7-18); Blood, Urine Negative (Negative); Glucose 145 MG/DL (74-106); Glucose,Urine (UA) Negative (Negative); Ketones,Urine Negative (Negative); Nitrite,Urine Positive (Negative); Osmolality,Calculated 269.5 MOS/KG (273-304); Protein,Urine 30 MG/DL; RBC,Urine 4 /HPF (0-4); Squamous Epithelial Cell,Urine Occasional /HPF (0-10); Total Protein 7.5 G/DL (6.4-8.3); Urine Color Amber (Yellow); Urine Specific Gravity 1.014 (1.001-1.035); WBC,Urine 256 /HPF (0-6)
[2019-04-02 12:25] LABS: Barbiturates Screen,Urine Positive (Negative); Benzodiazepines Screen,Urine Positive (Negative); Cannabinoid Screen,Urine Negative (Negative); Opiate Screen,Urine Positive (Negative); Phencyclidine Screen,Urine Negative (Negative)
[2019-04-02] MEDS ORDERED: ONDANSETRON 4 MG/2 ML VIAL IV PRN (15:58)
[2019-04-02] MEDS ORDERED: MECLIZINE 25 MG TABLET PO PRN (16:04)
[2019-04-02] MEDS ORDERED: SODIUM CHLORIDE 0.9% 100 ML IV ONE (17:20)
[2019-04-02] MEDS: ENOXAPARIN 40 MG/0.4 ML SYRINGE SUBCUT SCH (17:26)
[2019-04-02] MEDS: SODIUM CHLORIDE 0.9% 1,000 ML IV SCH (17:28)
[2019-04-02] MEDS: cefTRIAXone 1,000 MG in SYRINGE 1 EACH IV SCH (17:28)
[2019-04-02] MEDS ORDERED: carBAMazepine 200 MG TABLET PO SCH (21:00)
[2019-04-02] MEDS: POTASSIUM CHLORIDE 10 MEQ TABLET PO SCH (22:03)
[2019-04-02] MEDS: DULoxetine 30 MG CAPSULE PO SCH (22:04)
[2019-04-02] MEDS: LATANOPROST 0.005% OPH SOLN 2.5 ML BOTTLE BOTH EYES SCH (22:04)
[2019-04-03] MEDS: SODIUM CHLORIDE 0.9% 1,000 ML IV SCH ×5 (05:54→23:49)
[2019-04-03 06:26] LABS: Basophils % 0.4 % (0.0-0.8); Hematocrit 30.5 VOL% (35.7-47.0); Hemoglobin 9.5 GM/DL (12.0-16.0); Immature Granulocytes % 0.2 %; Immature Granulocytes Absolute 0.02 #; Lymphocytes # 1.5 10*3/uL (1.4-4.0); Mean Corpuscular HGB Conc 31.1 GM/DL (32-36); Mean Corpuscular Volume 82.4 FL (87-102); Mean Platelet Volume 9.8 FL (9.6-12.0); Monocytes % 9.7 % (1.7-12.7); Neutrophils % 70.7 % (38.7-73.9); Platelet Count 358 T/CUMM (130-400)
[2019-04-03 06:54] LABS: Albumin 3.1 G/DL (3.4-5.0); Bilirubin,Total 0.4 MG/DL (0.2-1.0); Calcium 7.9 MG/DL (8.5-10.1); Risk Ratio 3.08; Thyroid Stimulating Hormone 0.259 uIU/ml (0.358-3.74); Total Protein 6.9 G/DL (6.4-8.3); VLDL CHOLESTEROL 40.8 MG/DL
[2019-04-03] MEDS ORDERED: THYROID 60 MG TABLET PO SCH ×2 (09:00→10:05)
[2019-04-03] MEDS: FUROSEMIDE 40 MG TABLET PO SCH (09:33)
[2019-04-03] MEDS: LISINOPRIL 10 MG TABLET PO SCH (09:33)
[2019-04-03] MEDS: POTASSIUM CHLORIDE 10 MEQ TABLET PO SCH ×2 (09:33→20:33)
[2019-04-03] MEDS: PANTOPRAZOLE 40 MG TABLET PO SCH (09:33)
[2019-04-03] MEDS: FERROUS SULFATE 325 MG TABLET PO SCH (09:33)
[2019-04-03] MEDS ORDERED: MAGNESIUM SULF RIDER 4 GM in PREMIX 1 EACH IV PRN (10:11)
[2019-04-03] MEDS ORDERED: THYROID 60 MG TABLET PO ONE (10:30)
[2019-04-03] MEDS: MAGNESIUM SULF RIDER 2 GM in PREMIX 1 EACH IV PRN (11:48)
[2019-04-03] MEDS: cefTRIAXone 1,000 MG in SYRINGE 1 EACH IV SCH (17:00)
[2019-04-03] MEDS: ENOXAPARIN 40 MG/0.4 ML SYRINGE SUBCUT SCH (17:00)
[2019-04-03] MEDS: GABAPENTIN 300 MG CAPSULE PO SCH (20:33)
[2019-04-03] MEDS: DULoxetine 30 MG CAPSULE PO SCH (20:33)
[2019-04-03] MEDS: carBAMazepine 200 MG TABLET PO SCH (20:34)
[2019-04-03] MEDS: PRIMIDONE 250 MG TABLET PO SCH (20:46)
[2019-04-03] MEDS: LATANOPROST 0.005% OPH SOLN 2.5 ML BOTTLE BOTH EYES SCH (20:46)
[2019-04-04] MEDS: ACETAMINOPHEN 325 MG TABLET PO PRN ×3 (02:12→21:13)
[2019-04-04 06:02] LABS: Basophils % 0.4 % (0.0-0.8); Hematocrit 28.2 VOL% (35.7-47.0); Immature Granulocytes % 0.4 %; Immature Granulocytes Absolute 0.03 #; Lymphocytes # 1.9 10*3/uL (1.4-4.0); Lymphocytes % 22.7 % (21.3-54.2); Mean Corpuscular HGB Conc 31.9 GM/DL (32-36); Mean Corpuscular Volume 82.2 FL (87-102); Mean Platelet Volume 9.6 FL (9.6-12.0); Monocytes % 10.6 % (1.7-12.7); Neutrophils % 65.9 % (38.7-73.9); Platelet Count 338 T/CUMM (130-400); Red Blood Count 3.43 MC/CUMM (3.8-5.5); Red Cell Distribution Width 14.9 % (9.3-17.3); White Blood Count 8.2 T/CUMM (4-12)
[2019-04-04 06:29] LABS: Alanine Aminotransferase 131 U/L (13-56); Albumin 2.9 G/DL (3.4-5.0); Alkaline Phosphatase 121 U/L (45-117); Aspartate Amino Transferase 59 U/L (0-37); Bilirubin,Total < 0.39 MG/DL (0.2-1.0); Blood Urea Nitrogen 6 MG/DL (7-18); Calcium 7.8 MG/DL (8.5-10.1); Glucose 106 MG/DL (74-106); Osmolality,Calculated 272.7 MOS/KG (273-304); Total Protein 6.3 G/DL (6.4-8.3)
[2019-04-04] MEDS: THYROID 60 MG TABLET PO SCH (06:36)
[2019-04-04] MEDS: FUROSEMIDE 40 MG TABLET PO SCH (08:22)
[2019-04-04] MEDS: FERROUS SULFATE 325 MG TABLET PO SCH (08:23)
[2019-04-04] MEDS: LISINOPRIL 10 MG TABLET PO SCH (08:23)
[2019-04-04] MEDS: SODIUM CHLORIDE 0.9% 1,000 ML IV SCH ×3 (08:23→18:20)
[2019-04-04] MEDS: PANTOPRAZOLE 40 MG TABLET PO SCH (08:23)
[2019-04-04] MEDS: POTASSIUM CHLORIDE 10 MEQ TABLET PO SCH ×2 (08:23→21:37)
[2019-04-04] MEDS: ENOXAPARIN 40 MG/0.4 ML SYRINGE SUBCUT SCH (17:09)
[2019-04-04] MEDS: cefTRIAXone 1,000 MG in SYRINGE 1 EACH IV SCH (17:09)
[2019-04-04] MEDS: DULoxetine 30 MG CAPSULE PO SCH (21:11)
[2019-04-04] MEDS: LATANOPROST 0.005% OPH SOLN 2.5 ML BOTTLE BOTH EYES SCH (21:11)
[2019-04-04] MEDS: carBAMazepine 200 MG TABLET PO SCH (21:12)
[2019-04-04] MEDS: GABAPENTIN 300 MG CAPSULE PO SCH (21:12)
[2019-04-04] MEDS: PRIMIDONE 250 MG TABLET PO SCH (21:12)
[2019-04-05] MEDS: SODIUM CHLORIDE 0.9% 1,000 ML IV SCH ×2 (01:44→11:09)
[2019-04-05] MEDS: ACETAMINOPHEN 325 MG TABLET PO PRN (01:59)
[2019-04-05 05:05] LABS: Basophils % 0.1 % (0.0-0.8); Hematocrit 29.1 VOL% (35.7-47.0); Hemoglobin 9.4 GM/DL (12.0-16.0); Immature Granulocytes % 0.7 %; Immature Granulocytes Absolute 0.05 #; Lymphocytes # 1.6 10*3/uL (1.4-4.0); Mean Corpuscular HGB Conc 32.3 GM/DL (32-36); Mean Corpuscular Volume 82.7 FL (87-102); Mean Platelet Volume 9.2 FL (9.6-12.0); Neutrophils % 66.2 % (38.7-73.9); Platelet Count 324 T/CUMM (130-400); Red Blood Count 3.52 MC/CUMM (3.8-5.5); Red Cell Distribution Width 14.8 % (9.3-17.3); White Blood Count 7.6 T/CUMM (4-12)
[2019-04-05 05:41] LABS: Albumin 2.8 G/DL (3.4-5.0); Bilirubin,Total 0.6 MG/DL (0.2-1.0); Osmolality,Calculated 273.7 MOS/KG (273-304); Total Protein 6.4 G/DL (6.4-8.3)
[2019-04-05] MEDS: THYROID 60 MG TABLET PO SCH (06:53)
[2019-04-05] MEDS: MAGNESIUM SULF RIDER 2 GM in PREMIX 1 EACH IV PRN ×2 (08:43→11:07)
[2019-04-05] MEDS: POTASSIUM CHLORIDE 10 MEQ TABLET PO SCH (08:44)
[2019-04-05] MEDS: FERROUS SULFATE 325 MG TABLET PO SCH (08:44)
[2019-04-05] MEDS: PANTOPRAZOLE 40 MG TABLET PO SCH (08:44)
[2019-04-05] MEDS: POTASSIUM CHLORIDE 20 MEQ TABLET PO PRN ×4 (08:44→14:25)
[2019-04-05] MEDS: LISINOPRIL 10 MG TABLET PO SCH (08:44)
[2019-04-05] MEDS: FUROSEMIDE 40 MG TABLET PO SCH (11:07)
[2019-04-05 13:47] VITALS: BP 139/76
== END 2019-04-05 16:51 | disposition home health service (06) | DRG 917 ==
LOC: EDUNIT# → EDBD → N.ED 11:35 → N.EDINP 11:35 → SUATTDRO 14:53 → INTOOBSV 14:53 → OBSVTOIN 14:53 → N.5E 17:12
PROVIDERS: ADMIT Internal Medicine; ATTEND Internal Medicine

== ENCOUNTER 2019-07-21 09:48 | Inpatient (IN) ==
[2019-07-21] MEDS ORDERED: ONDANSETRON 4 MG/2 ML VIAL IV STA (10:47)
[2019-07-21] MEDS ORDERED: HYDROmorphone 2 MG/1 ML VIAL IV STA (10:47)
[2019-07-21 11:32] LABS: Basophils % 0.3 % (0.0-0.8); Hematocrit 32.5 VOL% (35.7-47.0); Hemoglobin 10.2 GM/DL (12.0-16.0); Immature Granulocytes % 0.6 %; Immature Granulocytes Absolute 0.06 #; Lymphocytes % 20.7 % (21.3-54.2); Mean Corpuscular HGB Conc 31.4 GM/DL (32-36); Mean Corpuscular Volume 89.3 FL (87-102); Mean Platelet Volume 9.4 FL (9.6-12.0); Monocytes % 11.8 % (1.7-12.7); Neutrophils % 66.6 % (38.7-73.9); Platelet Count 450 T/CUMM (130-400); Red Blood Count 3.64 MC/CUMM (3.8-5.5); Red Cell Distribution Width 16.2 % (9.3-17.3); White Blood Count 9.5 T/CUMM (4-12)
[2019-07-21 11:48] LABS: Apearance,Urine CLEAR (Clear); Bilirubin,Urine Negative (Negative); Blood, Urine Negative (Negative); Glucose,Urine (UA) Negative (Negative); Ketones,Urine 5 mg/dL (Negative); Nitrite,Urine Negative (Negative); Protein,Urine Negative; RBC,Urine <1 /HPF (0-4); Squamous Epithelial Cell,Urine Occasional /HPF (0-10); Urine Specific Gravity 1.023 (1.001-1.035); Urine Urobilinogen < 2.0 EU/DL (0.2-1.0); WBC,Urine <1 /HPF (0-6)
[2019-07-21 11:50] LABS: Urine Color Yellow (Yellow)
[2019-07-21 11:50] LABS: INR 0.9; Partial Thromboplastin Time 35.2 SECS (20.8-36.0)
[2019-07-21 11:52] LABS: Albumin 3.2 G/DL (3.4-5.0); Bilirubin,Total 0.5 MG/DL (0.2-1.0); Calcium 7.9 MG/DL (8.5-10.1); Osmolality,Calculated 278.4 MOS/KG (273-304); Total Protein 7.6 G/DL (6.4-8.3)
[2019-07-21] MEDS ORDERED: ACETAMINOPHEN 325 MG TABLET PO PRN (12:00)
[2019-07-21] MEDS: ONDANSETRON 4 MG/2 ML VIAL IV PRN ×2 (14:26→19:25)
[2019-07-21] MEDS: MORPHINE 4 MG/1 ML VIAL IV PRN (21:25)
[2019-07-21] MEDS: OXYBUTYNIN 5 MG TABLET PO SCH (21:33)
[2019-07-21] MEDS: DULoxetine 30 MG CAPSULE PO SCH (21:33)
[2019-07-21] MEDS: POTASSIUM CHLORIDE 10 MEQ TABLET PO SCH (21:34)
[2019-07-21] MEDS: FERROUS SULFATE 325 MG TABLET PO SCH (21:36)
[2019-07-21] MEDS: GABAPENTIN 300 MG CAPSULE PO SCH (21:36)
[2019-07-21] MEDS: MULTIVITAMIN (OCUVITE) TABLET PO SCH (21:36)
[2019-07-21] MEDS: PRIMIDONE 250 MG TABLET PO SCH (21:37)
[2019-07-21] MEDS: MELATONIN 3 MG TABLET PO SCH (21:37)
[2019-07-21] MEDS: LATANOPROST 0.005% OPH SOLN 2.5 ML BOTTLE BOTH EYES SCH (21:38)
[2019-07-21] MEDS: TEMAZEPAM 15 MG CAPSULE PO PRN (22:59)
[2019-07-22 06:45] LABS: Basophils % 0.4 % (0.0-0.8); Hematocrit 29.4 VOL% (35.7-47.0); Hemoglobin 9.2 GM/DL (12.0-16.0); Immature Granulocytes % 0.5 %; Immature Granulocytes Absolute 0.05 #; Lymphocytes # 1.5 10*3/uL (1.4-4.0); Lymphocytes % 16.4 % (21.3-54.2); Mean Corpuscular HGB Conc 31.3 GM/DL (32-36); Mean Corpuscular Volume 89.1 FL (87-102); Mean Platelet Volume 9.4 FL (9.6-12.0); Monocytes % 6.4 % (1.7-12.7); Neutrophils % 76.3 % (38.7-73.9); Platelet Count 427 T/CUMM (130-400); Red Cell Distribution Width 16.4 % (9.3-17.3); White Blood Count 9.3 T/CUMM (4-12)
[2019-07-22 07:16] LABS: Calcium 7.7 MG/DL (8.5-10.1); Osmolality,Calculated 279.3 MOS/KG (273-304); Risk Ratio 3.11; Thyroid Stimulating Hormone 0.514 uIU/ml (0.358-3.74); VLDL CHOLESTEROL 30.4 MG/DL
[2019-07-22] MEDS ORDERED: MAGNESIUM SULF RIDER 4 GM in PREMIX 1 EACH IV PRN (07:59)
[2019-07-22] MEDS ORDERED: MAGNESIUM SULF RIDER 2 GM in PREMIX 1 EACH IV PRN (07:59)
[2019-07-22] MEDS ORDERED: ROPIVACAINE 0.5% 30 ML VIAL ONE (08:22)
[2019-07-22] MEDS ORDERED: BUPIVACAINE MPF 0.5% /EPI 30 ML VIAL ONE (08:35)
[2019-07-22] MEDS ORDERED: DEXAMETHASONE 4 MG/1 ML VIAL ONE (08:36)
[2019-07-22] MEDS ORDERED: ceFAZolin 1,000 MG VIAL ONE (11:15)
[2019-07-22] MEDS ORDERED: propofoL 200 MG/20 ML VIAL IV ONE (12:51)
[2019-07-22] MEDS ORDERED: ROCURONIUM 100 MG/10 ML VIAL IV ONE (12:52)
[2019-07-22] MEDS ORDERED: LIDOCAINE 2% 5 ML VIAL ONE (12:52)
[2019-07-22] MEDS ORDERED: GLYCOPYRROLATE 0.4 MG/2 ML VIAL ONE (12:52)
[2019-07-22] MEDS ORDERED: ETOMIDATE 40 MG/20 ML VIAL IV ONE (12:52)
[2019-07-22] MEDS ORDERED: fentaNYL 100 MCG/2 ML VIAL ONE (12:52)
[2019-07-22] MEDS ORDERED: ONDANSETRON 4 MG/2 ML VIAL ONE (12:52)
[2019-07-22] MEDS ORDERED: PHENYLEPHRINE 1 MG/10 ML SYRINGE IV ONE (12:52)
[2019-07-22] MEDS ORDERED: PHENYLEPHRINE DRIP 20 MG/250 ML PREMIX IV ONE (12:52)
[2019-07-22] MEDS ORDERED: SEVOFLURANE 1 UNIT/15 MINUTE INH ONE (12:52)
[2019-07-22] MEDS ORDERED: NEOSTIGMINE 10 MG/10 ML VIAL ONE (12:53)
[2019-07-22] MEDS: PANTOPRAZOLE 40 MG TABLET PO SCH (14:52)
[2019-07-22] MEDS: FUROSEMIDE 40 MG TABLET PO SCH (14:52)
[2019-07-22] MEDS: FERROUS SULFATE 325 MG TABLET PO SCH ×2 (14:53→21:56)
[2019-07-22] MEDS: THYROID 60 MG TABLET PO SCH (14:53)
[2019-07-22] MEDS: POTASSIUM CHLORIDE 10 MEQ TABLET PO SCH ×2 (14:53→21:56)
[2019-07-22] MEDS: GABAPENTIN 300 MG CAPSULE PO SCH ×3 (14:58→21:47)
[2019-07-22] MEDS: MULTIVITAMIN (OCUVITE) TABLET PO SCH ×2 (14:58→21:57)
[2019-07-22] MEDS: amLODIPine 5 MG TABLET PO SCH (14:58)
[2019-07-22] MEDS: LACTATED RINGERS 1,000 ML IV SCH ×2 (16:35→16:38)
[2019-07-22] MEDS: MORPHINE 4 MG/1 ML VIAL IV PRN (19:28)
[2019-07-22] MEDS: DULoxetine 30 MG CAPSULE PO SCH (21:56)
[2019-07-22] MEDS: MELATONIN 3 MG TABLET PO SCH (21:56)
[2019-07-22] MEDS: OXYBUTYNIN 5 MG TABLET PO SCH (21:56)
[2019-07-22] MEDS: TEMAZEPAM 15 MG CAPSULE PO PRN (21:57)
[2019-07-22] MEDS: PRIMIDONE 250 MG TABLET PO SCH (21:58)
[2019-07-22] MEDS: LATANOPROST 0.005% OPH SOLN 2.5 ML BOTTLE BOTH EYES SCH (22:06)
[2019-07-23] MEDS: MORPHINE 4 MG/1 ML VIAL IV PRN ×2 (02:04→14:30)
[2019-07-23] MEDS: ONDANSETRON 4 MG/2 ML VIAL IV PRN ×2 (03:23→10:20)
[2019-07-23 05:16] LABS: Basophils % 0.3 % (0.0-0.8); Hematocrit 28.5 VOL% (35.7-47.0); Hemoglobin 9.1 GM/DL (12.0-16.0); Immature Granulocytes % 0.7 %; Immature Granulocytes Absolute 0.08 #; Lymphocytes # 1.8 10*3/uL (1.4-4.0); Lymphocytes % 16.3 % (21.3-54.2); Mean Corpuscular HGB Conc 31.9 GM/DL (32-36); Mean Platelet Volume 9.4 FL (9.6-12.0); Monocytes % 12.5 % (1.7-12.7); Neutrophils % 70.2 % (38.7-73.9); Platelet Count 485 T/CUMM (130-400); Red Blood Count 3.24 MC/CUMM (3.8-5.5); Red Cell Distribution Width 16.4 % (9.3-17.3); White Blood Count 10.9 T/CUMM (4-12)
[2019-07-23 05:32] LABS: Calcium 7.6 MG/DL (8.5-10.1); Osmolality,Calculated 265.2 MOS/KG (273-304)
[2019-07-23] MEDS: FERROUS SULFATE 325 MG TABLET PO SCH ×2 (09:10→20:55)
[2019-07-23] MEDS: GABAPENTIN 300 MG CAPSULE PO SCH ×2 (09:10→21:53)
[2019-07-23] MEDS: POTASSIUM CHLORIDE 10 MEQ TABLET PO SCH ×2 (09:32→20:56)
[2019-07-23] MEDS: THYROID 60 MG TABLET PO SCH (09:32)
[2019-07-23] MEDS: MULTIVITAMIN (OCUVITE) TABLET PO SCH ×2 (09:32→20:56)
[2019-07-23] MEDS: FUROSEMIDE 40 MG TABLET PO SCH (09:33)
[2019-07-23] MEDS: amLODIPine 5 MG TABLET PO SCH (09:33)
[2019-07-23] MEDS: PANTOPRAZOLE 40 MG TABLET PO SCH (09:38)
[2019-07-23] MEDS: POTASSIUM CHLORIDE 20 MEQ TABLET PO PRN ×2 (11:56→16:07)
[2019-07-23] MEDS: FONDAPARINUX 2.5 MG/0.5 ML SYRINGE SUBCUT SCH (12:03)
[2019-07-23] MEDS ORDERED: TUBERCULIN SKIN TEST 0.1 ML SYRINGE INTRADERM ONE (13:21)
[2019-07-23] MEDS: LATANOPROST 0.005% OPH SOLN 2.5 ML BOTTLE BOTH EYES SCH (20:54)
[2019-07-23] MEDS: DULoxetine 30 MG CAPSULE PO SCH (20:55)
[2019-07-23] MEDS: OXYBUTYNIN 5 MG TABLET PO SCH (20:55)
[2019-07-23] MEDS: MELATONIN 3 MG TABLET PO SCH (20:56)
[2019-07-23] MEDS: PRIMIDONE 250 MG TABLET PO SCH (20:56)
[2019-07-23] MEDS: TEMAZEPAM 15 MG CAPSULE PO PRN (20:57)
[2019-07-24] MEDS: MORPHINE 4 MG/1 ML VIAL IV PRN ×3 (01:24→20:26)
[2019-07-24] MEDS: THYROID 60 MG TABLET PO SCH ×2 (05:43→10:00)
[2019-07-24 07:46] LABS: Basophils % 0.3 % (0.0-0.8); Immature Granulocytes % 0.8 %; Immature Granulocytes Absolute 0.08 #; Lymphocytes # 1.8 10*3/uL (1.4-4.0); Lymphocytes % 18.6 % (21.3-54.2); Mean Corpuscular HGB Conc 32.1 GM/DL (32-36); Mean Corpuscular Volume 87.5 FL (87-102); Mean Platelet Volume 9.4 FL (9.6-12.0); Monocytes % 13.4 % (1.7-12.7); Neutrophils % 66.9 % (38.7-73.9); Platelet Count 478 T/CUMM (130-400); Red Cell Distribution Width 16.5 % (9.3-17.3); White Blood Count 9.5 T/CUMM (4-12)
[2019-07-24 08:05] LABS: Calcium 7.5 MG/DL (8.5-10.1); Osmolality,Calculated 268.1 MOS/KG (273-304)
[2019-07-24] MEDS: ONDANSETRON 4 MG/2 ML VIAL IV PRN (08:12)
[2019-07-24] MEDS: POTASSIUM CHLORIDE 10 MEQ TABLET PO SCH ×2 (09:51→20:23)
[2019-07-24] MEDS: GABAPENTIN 300 MG CAPSULE PO SCH ×3 (09:51→20:24)
[2019-07-24] MEDS: FERROUS SULFATE 325 MG TABLET PO SCH ×2 (09:52→20:24)
[2019-07-24] MEDS: MULTIVITAMIN (OCUVITE) TABLET PO SCH ×2 (09:52→20:25)
[2019-07-24] MEDS: amLODIPine 5 MG TABLET PO SCH (09:52)
[2019-07-24] MEDS: FUROSEMIDE 40 MG TABLET PO SCH (09:52)
[2019-07-24] MEDS: PANTOPRAZOLE 40 MG TABLET PO SCH (09:54)
[2019-07-24] MEDS: FONDAPARINUX 2.5 MG/0.5 ML SYRINGE SUBCUT SCH (11:36)
[2019-07-24] MEDS: PHENAZOPYRIDINE 95 MG TABLET PO SCH (18:25)
[2019-07-24 18:40] LABS: Apearance,Urine Slightly Hazy (Clear); Bacteria,Urine Occasional /HPF (Few); Bilirubin,Urine Negative (Negative); Blood, Urine Negative (Negative); Glucose,Urine (UA) Negative (Negative); Ketones,Urine 5 mg/dL (Negative); Mucus,Urine Occasional /LPF (Occasional); Nitrite,Urine Negative (Negative); Protein,Urine Negative; RBC,Urine 12 /HPF (0-4); Squamous Epithelial Cell,Urine Occasional /HPF (0-10); Urine Color Yellow (Yellow); Urine Specific Gravity 1.008 (1.001-1.035); Urine Urobilinogen < 2.0 EU/DL (0.2-1.0); WBC,Urine 256 /HPF (0-6)
[2019-07-24] MEDS: DULoxetine 30 MG CAPSULE PO SCH (20:22)
[2019-07-24] MEDS: MELATONIN 3 MG TABLET PO SCH (20:23)
[2019-07-24] MEDS: OXYBUTYNIN 5 MG TABLET PO SCH (20:23)
[2019-07-24] MEDS: PRIMIDONE 250 MG TABLET PO SCH (20:24)
[2019-07-24] MEDS: LATANOPROST 0.005% OPH SOLN 2.5 ML BOTTLE BOTH EYES SCH (20:32)
[2019-07-25 05:26] LABS: Basophils % 0.3 % (0.0-0.8); Hematocrit 29.3 VOL% (35.7-47.0); Hemoglobin 9.3 GM/DL (12.0-16.0); Immature Granulocytes % 0.9 %; Immature Granulocytes Absolute 0.11 #; Lymphocytes # 1.7 10*3/uL (1.4-4.0); Lymphocytes % 14.7 % (21.3-54.2); Mean Corpuscular HGB Conc 31.7 GM/DL (32-36); Mean Corpuscular Volume 88.3 FL (87-102); Mean Platelet Volume 9.4 FL (9.6-12.0); Monocytes % 11.6 % (1.7-12.7); Neutrophils % 72.5 % (38.7-73.9); Platelet Count 537 T/CUMM (130-400); Red Blood Count 3.32 MC/CUMM (3.8-5.5); White Blood Count 11.7 T/CUMM (4-12)
[2019-07-25 05:54] LABS: Calcium 7.6 MG/DL (8.5-10.1); Osmolality,Calculated 276.5 MOS/KG (273-304)
[2019-07-25] MEDS: GABAPENTIN 300 MG CAPSULE PO SCH ×3 (10:09→21:00)
[2019-07-25] MEDS: PHENAZOPYRIDINE 95 MG TABLET PO SCH ×3 (10:09→17:29)
[2019-07-25] MEDS: MULTIVITAMIN (OCUVITE) TABLET PO SCH ×2 (10:09→20:57)
[2019-07-25] MEDS: THYROID 60 MG TABLET PO SCH (10:09)
[2019-07-25] MEDS: PANTOPRAZOLE 40 MG TABLET PO SCH (10:10)
[2019-07-25] MEDS: FUROSEMIDE 40 MG TABLET PO SCH (10:10)
[2019-07-25] MEDS: CIPROFLOXACIN 500 MG TABLET PO SCH ×2 (10:10→20:57)
[2019-07-25] MEDS: POTASSIUM CHLORIDE 10 MEQ TABLET PO SCH ×2 (10:10→20:57)
[2019-07-25] MEDS: amLODIPine 5 MG TABLET PO SCH (10:10)
[2019-07-25] MEDS: FERROUS SULFATE 325 MG TABLET PO SCH ×2 (10:10→20:57)
[2019-07-25] MEDS: FONDAPARINUX 2.5 MG/0.5 ML SYRINGE SUBCUT SCH (10:29)
[2019-07-25] MEDS: ONDANSETRON 4 MG/2 ML VIAL IV PRN (13:36)
[2019-07-25] MEDS: LATANOPROST 0.005% OPH SOLN 2.5 ML BOTTLE BOTH EYES SCH (20:56)
[2019-07-25] MEDS: DULoxetine 30 MG CAPSULE PO SCH (20:57)
[2019-07-25] MEDS: PRIMIDONE 250 MG TABLET PO SCH (20:57)
[2019-07-25] MEDS: MELATONIN 3 MG TABLET PO SCH (20:57)
[2019-07-25] MEDS: OXYBUTYNIN 5 MG TABLET PO SCH (20:57)
[2019-07-26] MEDS: PHENAZOPYRIDINE 95 MG TABLET PO SCH ×3 (10:30→17:20)
[2019-07-26] MEDS: FERROUS SULFATE 325 MG TABLET PO SCH ×2 (10:31→21:37)
[2019-07-26] MEDS: METOPROLOL TARTRATE 25 MG TABLET PO SCH (10:31)
[2019-07-26] MEDS: POTASSIUM CHLORIDE 10 MEQ TABLET PO SCH ×2 (10:32→21:37)
[2019-07-26] MEDS: amLODIPine 5 MG TABLET PO SCH (10:32)
[2019-07-26] MEDS: FUROSEMIDE 40 MG TABLET PO SCH (10:32)
[2019-07-26] MEDS: MULTIVITAMIN (OCUVITE) TABLET PO SCH ×2 (10:32→21:36)
[2019-07-26] MEDS: THYROID 60 MG TABLET PO SCH (10:32)
[2019-07-26] MEDS: CIPROFLOXACIN 500 MG TABLET PO SCH (10:32)
[2019-07-26] MEDS: FONDAPARINUX 2.5 MG/0.5 ML SYRINGE SUBCUT SCH (10:33)
[2019-07-26] MEDS: GABAPENTIN 300 MG CAPSULE PO SCH ×2 (10:33→23:55)
[2019-07-26] MEDS: PANTOPRAZOLE 40 MG TABLET PO SCH (10:33)
[2019-07-26] MEDS: MORPHINE 4 MG/1 ML VIAL IV PRN ×2 (12:47→21:37)
[2019-07-26] MEDS: LATANOPROST 0.005% OPH SOLN 2.5 ML BOTTLE BOTH EYES SCH (21:35)
[2019-07-26] MEDS: PRIMIDONE 250 MG TABLET PO SCH (21:36)
[2019-07-26] MEDS: NITROFURANTOIN MACRO/MONO 100 MG CAPSULE PO SCH (21:37)
[2019-07-26] MEDS: OXYBUTYNIN 5 MG TABLET PO SCH (21:37)
[2019-07-26] MEDS: DULoxetine 30 MG CAPSULE PO SCH (21:37)
[2019-07-26] MEDS: MELATONIN 3 MG TABLET PO SCH (21:37)
[2019-07-26] MEDS: ONDANSETRON 4 MG/2 ML VIAL IV PRN (22:25)
[2019-07-27 08:12] VITALS: BP 104/55
[2019-07-27] MEDS: PHENAZOPYRIDINE 95 MG TABLET PO SCH ×2 (09:49→11:45)
[2019-07-27] MEDS: THYROID 60 MG TABLET PO SCH (09:49)
[2019-07-27] MEDS: FUROSEMIDE 40 MG TABLET PO SCH (09:50)
[2019-07-27] MEDS: POTASSIUM CHLORIDE 10 MEQ TABLET PO SCH (09:50)
[2019-07-27] MEDS: FERROUS SULFATE 325 MG TABLET PO SCH (09:50)
[2019-07-27] MEDS: METOPROLOL TARTRATE 25 MG TABLET PO SCH (09:51)
[2019-07-27] MEDS: NITROFURANTOIN MACRO/MONO 100 MG CAPSULE PO SCH (09:52)
[2019-07-27] MEDS: PANTOPRAZOLE 40 MG TABLET PO SCH (09:53)
[2019-07-27] MEDS: GABAPENTIN 300 MG CAPSULE PO SCH (09:53)
[2019-07-27] MEDS: MULTIVITAMIN (OCUVITE) TABLET PO SCH (09:54)
[2019-07-27] MEDS: amLODIPine 5 MG TABLET PO SCH (09:59)
[2019-07-27] MEDS: FONDAPARINUX 2.5 MG/0.5 ML SYRINGE SUBCUT SCH (10:00)
== END 2019-07-27 12:35 | disposition swing bed (61) | DRG 481 ==
LOC: EDUNIT# → EDBD → N.ED 09:48 → N.EDINP 12:00 → SUATTDRO 12:00 → N.3E 13:28
PROVIDERS: ADMIT Internal Medicine; ATTEND Internal Medicine